=== PATIENT | female | born 1955 | race Caucasian/White ===

== ENCOUNTER → 2021-01-27 | Outpatient (CLI) | payer OTHER ==
[~2021-01-27] MED LIST: HYDCHL12.5 PO; LANS15EC PO; LEVSOD88 PO; LOSARTAN POTAS100 MG PO; NU-MAG71.5 MG; POTCHL20ER PO; VALS80 PO; VENL75ER PO
[2021-01-31 14:10] LABS: HPV 16 Negative (Negative); HPV 18 Negative (Negative); HPV OTHER HR TYPES Negative (Negative)
== END | disposition home or self-care (01) ==
LOC: LAB SHORT 15:38 → LAB 15:38
PROVIDERS: Obstetrics & Gynecology
DX: Z12.4 Encounter for screening for malignant neoplasm of cervix (principal)
CPT/HCPCS: 87624; G0123

== ENCOUNTER → 2023-07-13 | Outpatient (CLI) | payer OTHER ==
[2023-07-13 19:06] LABS: Microalb/Creat Ratio UR, Rand 4.32 mg/g (0.000-30.000); Microalbumin, Random Urine 5.4 mg/L (0.000-20.000)
== END ==
LOC: LAB SHORT 07:05 → LAB 07:05
PROVIDERS: Family Medicine
DX: I10 Essential (primary) hypertension (principal)
CPT/HCPCS: 82043; 82570